=== PATIENT | female | born 1995 | race Caucasian/White ===

== ENCOUNTER 2020-06-17 15:19 | Outpatient (CLI) | payer OTHER, SELFPAY | END 2020-06-17 15:20 | disposition home or self-care (01) | PROVIDERS: PCP Nurse Practitioner Family; Visit Provider Nurse Practitioner Family | DX: Z32.00 Encounter for pregnancy test, result unknown (principal) | CPT/HCPCS: 36415; 84702 ==

== ENCOUNTER 2020-07-21 13:10 | Outpatient (CLI) | payer OTHER, SELFPAY ==
[2020-07-21 13:37] LABS: Basophils Percent Auto 0.3 % (0.2-1.2); Eosinophils Absolute Auto 0.1 K/mm3 (0-0.3); Eosinophils Percent Auto 0.9 % (0-4.4); Hematocrit 38.8 % (37.0-47.0); Hemoglobin 13.6 g/dL (12.0-15.0); Immature Granulocyte Absolute 0.06 K/mm3 (0.00-0.031); Immature Granulocyte Percent A 0.4 % (0-0.5); Lymphocytes Absolute Auto 2.18 K/mm3 (0.9-3.2); Lymphocytes Percent Auto 16.2 % (18.3-44.2); Mean Corpuscular HGB Conc 35.1 g/dl (32-36); Mean Corpuscular Hemoglobin 30.9 pg (26-34); Mean Corpuscular Volume 88.2 fl (80-100); Mean Platelet Volume 9.4 fl (7.4-10.4); Monocytes Absolute Auto 0.7 K/mm3 (0.1-0.6); Neutrophils Absolute Auto 10.4 K/mm3 (1.3-6.7); Neutrophils Percent Auto 77.2 % (45.5-73.1); Platelet Count Result 323 k/mm3 (150-375); White Blood Count 13.5 K/mm3 (4.5-10.0)
[2020-07-21 13:42] LABS: Add Urine Microscopic? YES; Amorphous Sediment Urine Few; Appearance Urine Cloudy (Clear); Bacteria Urine Trace /hpf; Bilirubin Urine Negative (Negative); Blood Urine Negative (Negative); Color Urine Yellow (Yellow); Glucose Urine UA Negative (Negative); Ketones Urine Negative (Negative); Leukocyte Esterase Ur Negative LEU/UL (NEGATIVE); Nitrate Urine Negative (Negative); Protein Urine Negative (Negative); RBC Urine 0-2 /hpf (0-2); Specific Grav Ur 1.018 (1.001-1.035); Squamous Epithelial Cell Urine Few /hpf (Few); Urobilinogen Urine Negative mg/dL (<2.0)
[2020-07-21 14:19] LABS: Thyroid Stimulating Hormone 0.626 uIU/mL (0.465-4.680)
[2020-07-21 14:29] LABS: HIV 1/2 Ab P24 Ag Result Negative (Negative)
[2020-07-21 14:31] LABS: Vitamin D 25 Hydroxy 43.8 ng/mL
[2020-07-21 14:47] LABS: Hepatitis B Surface Antigen Negative (Negative); Rubella IgG Antibody 53.1 IU/ML
[2020-07-21 15:04] LABS: Hepatitis C Virus Antibody Reactive (Negative)
[2020-07-22 11:36] LABS: Rapid Plasma Reagin Non-Reactive (NonReactive)
[2020-07-23 16:02] LABS: Hepatitis C RNA, Quant PCR <15 IU/mL
[2020-07-27 01:29] LABS: Hematocrit 38.8 % (35.0-45.0); Hemoglobin 13.3 g/dL (11.7-15.5); MCH 30.8 pg (27.0-33.0); RDW 13.1 % (11.0-15.0); Red Blood Cell Count 4.31 Mill/uL (3.80-5.10)
== END 2020-07-21 13:11 | disposition home or self-care (01) ==
LOC: ANHLAB 13:12
PROVIDERS: PCP Nurse Practitioner Family; Visit Provider Student in an Organized Health Care Education/Training Program
DX: Z34.90 Encounter for supervision of normal pregnancy, unspecified, unspecified trimester (principal); Z3A.00 Weeks of gestation of pregnancy not specified
CPT/HCPCS: 36415; 81001; 82306; 83021; 84443; 85025; 86592; 86703; 86762; 86787; 86803; 86850; 86900; 86901; 87086; 87340; 87522; G0432

== ENCOUNTER 2020-08-14 10:12 | Outpatient (CLI) | payer OTHER, SELFPAY ==
[2020-08-14 10:50] LABS: Alanine Aminotransferase 15 U/L (4-35); Albumin Level 3.6 g/dL (3.5-5.1); Alkaline Phosphatase 46 U/L (38-126); Anion Gap 5 mmol/L (8-16); Aspartate Amino Transferase 23 U/L (14-36); Bilirubin,Total 0.4 mg/dL (0.2-1.3); Blood Urea Nitrogen 5 mg/dL (7-17); Calcium 8.6 mg/dL (8.4-10.2); Carbon Dioxide 24 mmol/L (22-30); Chloride 109 mmol/L (98-107); Estimated Glomerular Filt Rate > 60; Glucose 92 mg/dL (65-105); Potassium 3.6 mmol/L (3.4-5.0); Sodium 138 mmol/L (137-145)
== END 2020-08-14 10:13 | disposition home or self-care (01) ==
PROVIDERS: PCP Nurse Practitioner Family; Visit Provider Student in an Organized Health Care Education/Training Program
DX: R89.9 Unspecified abnormal finding in specimens from other organs, systems and tissues (principal); Z34.90 Encounter for supervision of normal pregnancy, unspecified, unspecified trimester; Z3A.00 Weeks of gestation of pregnancy not specified
CPT/HCPCS: 36415; 80053

== ENCOUNTER 2020-11-20 12:32 | Outpatient (CLI) | payer OTHER, SELFPAY ==
[2020-11-20 14:16] LABS: Basophils Percent Auto 0.2 % (0.2-1.2); Eosinophils Absolute Auto 0.1 K/mm3 (0-0.3); Eosinophils Percent Auto 0.7 % (0-4.4); Hematocrit 32.9 % (37.0-47.0); Hemoglobin 11.3 g/dL (12.0-15.0); Immature Granulocyte Absolute 0.12 K/mm3 (0.00-0.031); Immature Granulocyte Percent A 0.7 % (0-0.5); Lymphocytes Absolute Auto 1.88 K/mm3 (0.9-3.2); Lymphocytes Percent Auto 11.5 % (18.3-44.2); Mean Corpuscular HGB Conc 34.3 g/dl (32-36); Mean Corpuscular Hemoglobin 31.5 pg (26-34); Mean Corpuscular Volume 91.6 fl (80-100); Mean Platelet Volume 9.4 fl (7.4-10.4); Monocytes Absolute Auto 0.9 K/mm3 (0.1-0.6); Monocytes Percent Auto 5.7 % (2.6-8.5); Neutrophils Absolute Auto 13.3 K/mm3 (1.3-6.7); Neutrophils Percent Auto 81.2 % (45.5-73.1); Platelet Count Result 322 k/mm3 (150-375); Red Blood Count 3.59 M/mm3 (4.2-5.4); Red Cell Distribution Width 12.1 % (11.5-14.5); White Blood Count 16.4 K/mm3 (4.5-10.0)
[2020-11-20 14:40] LABS: Glucose 1 Hour PP 50gm Dose 121 mg/dL
== END 2020-11-20 12:33 | disposition home or self-care (01) ==
LOC: ANHLAB 12:34
PROVIDERS: Visit Provider Student in an Organized Health Care Education/Training Program
DX: Z34.02 Encounter for supervision of normal first pregnancy, second trimester (principal); Z3A.27 27 weeks gestation of pregnancy
CPT/HCPCS: 36415; 82947; 85025

== ENCOUNTER 2020-12-22 13:14 | Outpatient (CLI) | payer OTHER, SELFPAY ==
[2020-12-22 13:34] LABS: Basophils Percent Auto 0.2 % (0.2-1.2); Eosinophils Absolute Auto 0.2 K/mm3 (0-0.3); Hematocrit 34.7 % (37.0-47.0); Hemoglobin 11.8 g/dL (12.0-15.0); Immature Granulocyte Absolute 0.15 K/mm3 (0.00-0.031); Immature Granulocyte Percent A 0.9 % (0-0.5); Lymphocytes Absolute Auto 2.21 K/mm3 (0.9-3.2); Lymphocytes Percent Auto 13.2 % (18.3-44.2); Mean Corpuscular Hemoglobin 31.1 pg (26-34); Mean Corpuscular Volume 91.6 fl (80-100); Monocytes Absolute Auto 1.1 K/mm3 (0.1-0.6); Monocytes Percent Auto 6.7 % (2.6-8.5); Platelet Count Result 314 k/mm3 (150-375); Red Blood Count 3.79 M/mm3 (4.2-5.4); Red Cell Distribution Width 12.3 % (11.5-14.5); White Blood Count 16.7 K/mm3 (4.5-10.0)
[2020-12-22 14:41] LABS: HIV 1/2 Ab P24 Ag Result Negative (Negative)
[2020-12-23 11:10] LABS: Rapid Plasma Reagin Non-Reactive (NonReactive)
== END 2020-12-22 13:15 | disposition home or self-care (01) ==
LOC: ANHLAB 13:18
PROVIDERS: Visit Provider Student in an Organized Health Care Education/Training Program
DX: Z34.90 Encounter for supervision of normal pregnancy, unspecified, unspecified trimester (principal); Z3A.00 Weeks of gestation of pregnancy not specified
CPT/HCPCS: 36415; 85025; 86592; 86703; G0432

== ENCOUNTER 2021-01-15 14:09 | Outpatient (CLI) | payer OTHER, SELFPAY ==
[2021-01-15] VITALS (9 sets, daily range): BP systolic 116–129; BP diastolic 64–71; PULSE 76–84
[2021-01-15 14:43] LABS: Add Urine Microscopic? YES; Appearance Urine Turbid (Clear); Bacteria Urine 2+ /hpf; Bilirubin Urine Negative (Negative); Blood Urine Negative (Negative); Color Urine Amber (Yellow); Glucose Urine UA Negative (Negative); Ketones Urine Negative (Negative); Leukocyte Esterase Ur Negative LEU/UL (NEGATIVE); Mucus Urine Rare /lpf; Nitrate Urine Negative (Negative); Protein Urine Negative (Negative); RBC Urine 0-2 /hpf (0-2); Specific Grav Ur 1.012 (1.001-1.035); Squamous Epithelial Cell Urine Many /hpf (Few); Urobilinogen Urine Negative mg/dL (<2.0); WBC Urine 0-3 /hpf (0-3)
[2021-01-15 14:44] LABS: Basophils Percent Auto 0.2 % (0.2-1.2); Eosinophils Absolute Auto 0.2 K/mm3 (0-0.3); Eosinophils Percent Auto 1.1 % (0-4.4); Hematocrit 33.7 % (37.0-47.0); Hemoglobin 11.7 g/dL (12.0-15.0); Immature Granulocyte Absolute 0.11 K/mm3 (0.00-0.031); Immature Granulocyte Percent A 0.7 % (0-0.5); Lymphocytes Absolute Auto 1.88 K/mm3 (0.9-3.2); Lymphocytes Percent Auto 12.4 % (18.3-44.2); Mean Corpuscular HGB Conc 34.7 g/dl (32-36); Mean Corpuscular Hemoglobin 31.1 pg (26-34); Mean Corpuscular Volume 89.6 fl (80-100); Mean Platelet Volume 9.4 fl (7.4-10.4); Monocytes Percent Auto 6.6 % (2.6-8.5); Neutrophils Absolute Auto 11.9 K/mm3 (1.3-6.7); Platelet Count Result 303 k/mm3 (150-375); Red Blood Count 3.76 M/mm3 (4.2-5.4); Red Cell Distribution Width 12.3 % (11.5-14.5); White Blood Count 15.1 K/mm3 (4.5-10.0)
[2021-01-15 14:54] LABS: Alanine Aminotransferase 15 U/L (4-35); Albumin Level 3.3 g/dL (3.5-5.1); Alkaline Phosphatase 129 U/L (38-126); Anion Gap 7 mmol/L (8-16); Aspartate Amino Transferase 22 U/L (14-36); Bilirubin,Total 0.3 mg/dL (0.2-1.3); Blood Urea Nitrogen 5 mg/dL (7-17); Calcium 9.3 mg/dL (8.4-10.2); Carbon Dioxide 22 mmol/L (22-30); Chloride 107 mmol/L (98-107); Estimated Glomerular Filt Rate > 60; Glucose 99 mg/dL (65-110); Potassium 3.4 mmol/L (3.4-5.0); Sodium 136 mmol/L (137-145); Uric Acid 3.3 mg/dL (2.5-7.5)
[2021-01-15 15:41] LABS: Creatinine Urine 79.4 mg/dL; Total Protein Urine Random 21 mg/dL; Ur Ttl Prot Creatinine Ratio 0.26 mg/mg (0-0.20)
--- NOTE | 2021-01-15 16:08 | PC.NURSE ---
0283--Report to Dr. Ladd re: BP's, lab results, and NST results. Orders to DC home.
== END 2021-01-15 16:10 | disposition home or self-care (01) ==
LOC: ANHOBOP 14:17 → ANHLDR 14:20
PROVIDERS: Visit Provider Student in an Organized Health Care Education/Training Program
DX: O13.3 Gestational [pregnancy-induced] hypertension without significant proteinuria, third trimester (principal); Z3A.36 36 weeks gestation of pregnancy
CPT/HCPCS: 36415; 59025; 80053; 81001; 82570; 84156; 84550; 85025; 87086; 99199

== ENCOUNTER 2021-01-16 20:46 | Outpatient (CLI) | payer OTHER, SELFPAY ==
[2021-01-16 21:07] VITALS: RESP 18; TEMP 36.8
[2021-01-16 21:08] VITALS: BP 128/71; PULSE 72
[2021-01-16 21:15] VITALS: BP 120/71; PULSE 68
[2021-01-16 21:30] VITALS: BP 119/63; PULSE 68
== END 2021-01-16 21:21 | disposition home or self-care (01) ==
LOC: ANHOBOP 20:52 → ANHOBPP 20:54
PROVIDERS: Visit Provider Student in an Organized Health Care Education/Training Program
DX: O13.9 Gestational [pregnancy-induced] hypertension without significant proteinuria, unspecified trimester (principal); Z3A.00 Weeks of gestation of pregnancy not specified
CPT/HCPCS: 59025; 99199

== ENCOUNTER 2021-01-27 13:49 | Inpatient (IN) | payer OTHER, SELFPAY ==
[2021-01-27] VITALS (12 sets, daily range): BP systolic 112–130; BP diastolic 55–82; PULSE 71–97; RESP 16–18; TEMP 36.4–37.2; BMI 28.3
--- NOTE | 2021-01-27 13:49 | LDADM ---
This patient, Ambika Woods, was admitted to Labor/Delivery/Recovery 108 on 01/27/21 at 13:49. Plans for labor, pain management and were discussed with patient. Patient/family oriented to hospital policies and general routines including ID bracelet, bed and alarms, visiting hours, pain management, procedures, bathroom and other care routines, personal items, smoking policy, room service/diet and guest tray routines, infant security routines, and visiting hours. Patient/Family are encouraged to report perceived risks to care and to ask questions if they do not understand what they are told or what they should do. See OBIX for further documentation.
[2021-01-27 14:30] LABS: Basophils Absolute Auto 0.1 K/mm3 (0.0-0.1); Basophils Percent Auto 0.3 % (0.2-1.2); Eosinophils Absolute Auto 0.1 K/mm3 (0-0.3); Eosinophils Percent Auto 0.7 % (0-4.4); Hemoglobin 12.8 g/dL (12.0-15.0); Immature Granulocyte Absolute 0.17 K/mm3 (0.00-0.031); Immature Granulocyte Percent A 0.9 % (0-0.5); Mean Corpuscular HGB Conc 34.6 g/dl (32-36); Mean Corpuscular Hemoglobin 30.7 pg (26-34); Mean Corpuscular Volume 88.7 fl (80-100); Mean Platelet Volume 9.4 fl (7.4-10.4); Monocytes Percent Auto 5.3 % (2.6-8.5); Neutrophils Absolute Auto 14.8 K/mm3 (1.3-6.7); Neutrophils Percent Auto 80.8 % (45.5-73.1); Platelet Count Result 332 k/mm3 (150-375); Red Blood Count 4.17 M/mm3 (4.2-5.4); Red Cell Distribution Width 12.4 % (11.5-14.5); White Blood Count 18.3 K/mm3 (4.5-10.0)
[2021-01-27] MEDS: DINOPROSTONE 10 MG VAG INSERT VAGINAL (14:45)
--- NOTE | 2021-01-27 15:47 | PC.NURSE ---
Lab called, still awaiting CMP results.
[2021-01-27 16:07] LABS: Alanine Aminotransferase 20 U/L (4-35); Albumin Level 3.7 g/dL (3.5-5.1); Alkaline Phosphatase 154 U/L (38-126); Anion Gap 6 mmol/L (8-16); Aspartate Amino Transferase 30 U/L (14-36); Bilirubin,Total 0.4 mg/dL (0.2-1.3); Blood Urea Nitrogen 5 mg/dL (7-17); Calcium 9.4 mg/dL (8.4-10.2); Carbon Dioxide 20 mmol/L (22-30); Chloride 110 mmol/L (98-107); Estimated CRCL calculation 145 ml/min; Estimated Glomerular Filt Rate > 60; Glucose 99 mg/dL (65-110); Potassium 3.7 mmol/L (3.4-5.0); Sodium 136 mmol/L (137-145)
[2021-01-27 16:50] LABS: Amphetamine Screen Urine Negative (Negative); Barbiturate Screen Urine Negative (Negative); Benzodiazepines Screen Urine Negative (Negative); Cannabinoid Screen Urine Negative (Negative); Cocaine Screen Urine Negative (Negative); Methadone Screen Urine Negative (Negative); Opiate Screen Urine Negative (Negative); Phencyclidine Screen Urine Negative (Negative)
--- NOTE | 2021-01-27 16:53 | PM.IMHP ---
H&P: HPI History of Present Illness Date/Time: 01/27/21 16:53 Patient is a 25-year-old last menstrual period 04/30/2020. She is currently 38 weeks 6 days gestation with an estimated due date of 02/04/2021. She is dated by LMP consistent with ultrasound on 07/07/2020 at 9 weeks gestation. Patient presents to Labor and delivery for induction of labor secondary to gestational hypertension. Patient presented to [facility] office today for routine visit and was found to have an elevated blood pressure of 146/80. This is patient's 2nd documented elevated blood pressure during as she had a previous elevated blood pressure of 146/76 approximately 2 weeks ago. Decision was made to proceed with induction of labor secondary to newly diagnosed gestational hypertension. In general, patient reports feeling well. Denies any headache, chest pain, shortness of breath, nausea, vomiting, right upper quadrant tenderness, or visual disturbances. She reports occasional contractions. Denies any vaginal bleeding or leakage of fluid. Reports good movement. Chief Complaint: Induction of labor Gestational hypertension Review of Systems Review of Systems: All systems reviewed & are unremarkable except as noted in HPI and below Constitutional: Constitutional: Reports as per HPI, Reports no additional constitutional complaints, Denies chills, Denies fever(s), Denies headache(s) and Denies night sweats Eyes: Eyes: Reports as per HPI and Reports no additional eye complaints ENT: Reports system reviewed and no additional complaints, except as documented, Reports as per HPI, Reports Normal hearing present and Denies headache(s) Cardiovascular: Cardiovascular: Reports as per HPI, Reports no additional cardiovascular complaints, Denies chest pain and Denies dyspnea Respiratory: Respiratory: Reports as per HPI, Reports no additional respiratory complaints, Denies cough and Denies dyspnea Gastrointestinal: Gastrointestinal: Reports as per HPI, Reports no additional gastrointestinal complaints, Denies abdominal pain, Denies change in bowel habits, Denies change in stool character, Denies nausea and Denies vomiting Genitourinary: Genitourinary: Reports no additional female genitourinary complaints, Reports as per HPI, Denies abnormal vaginal bleeding, Denies genital lesions, Denies hot flashes, Denies dyspareunia, Denies pelvic pain, Denies sexual dysfunction, Denies urinary incontinence, Denies vaginal discharge, Denies vaginal dryness and Denies vaginal odor Musculoskeletal: Musculoskeletal: Reports no additional musculoskeletal complaints and Reports as per HPI Integumentary/Breasts: Skin/Breast: Reports system reviewed and no additional complaints, except as docu, Reports as per HPI, Denies breast pain and Denies nipple discharge Neurologic: Reports system reviewed and no additional complaints, except as documented, Reports as per HPI, Reports Normal hearing present and Denies headache(s) Psychiatric: Psychiatric: Reports no additional psychiatric complaints, Reports as per HPI, Denies anxiety and Denies depression Endocrine: Endocrine: Reports no additional endocrine complaints and Reports as per HPI Hematologic/Lymphatic: Hematologic/Lymphatic: Reports no additional hematologic/lymphatic complaints and Reports as per HPI Allergic/Immunologic: Allergic/Immunologic: Reports no additional allergic/immunologic complaints and Reports as per HPI PMFSH Family History Family History Grandparent Hypertension Cancer Social History Social History Years smoked: 14 Smoking status: Current every day smoker Tobacco type: cigarettes Alcohol intake: never Substance use: former Substance use type: marijuana Last use: STOPPED WITH Gender identity (if verbalized by the patient): Female Spiritual care concerns: No Meds Home Medic
--- NOTE | 2021-01-27 17:01 | WPDANESEPP ---
Anes - Eval Pre Procedure Procedure: Labor epidural Date/Time: 01/27/21 17:01 Surgeon: Wilberto Preop Diagnosis: ABD pain with contractions Pre Op Diagnosis: iol Patient Data Age: 25 Gender: F Height: 1.65 m Weight: 77.2 kg Last Vital Signs Temp 97.9 F 01/27/21 14:24 Pulse 86 01/27/21 16:45 Resp 18 01/27/21 14:24 BP 130/76 01/27/21 16:45 Allergies Allergy/AdvReac Type Severity Reaction Status Date / Time azithromycin Allergy Mild HIVES Verified 01/27/21 13:17 Home Medications Medication Instructions Recorded Confirmed Type vits no.126-ferrous fum 1 tablet PO DAILY #30 tablet 06/17/20 01/27/21 Rx 28 mg iron-folic acid 800 mcg tablet blood pressure monitor #1 ea 01/15/21 01/27/21 Rx Laboratory Tests 01/27/21 01/27/21 01/27/21 14:16 14:17 14:17 WBC 18.3 K/mm3 H K/mm3 (4.5-10.0) RBC 4.17 M/mm3 L M/mm3 (4.2-5.4) Hgb 12.8 g/dL g/dL (12.0-15.0) Hct 37.0 % % (37.0-47.0) MCV 88.7 fl fl (80-100) MCH 30.7 pg pg (26-34) MCHC 34.6 g/dl g/dl (32-36) RDW 12.4 % % (11.5-14.5) Plt Count 332 k/mm3 k/mm3 (150-375) MPV 9.4 fl fl (7.4-10.4) Immature Gran % (Auto) 0.9 % H % (0-0.5) Neut % (Auto) 80.8 % H % (45.5-73.1) Lymph % (Auto) 12.0 % L % (18.3-44.2) [place] % (Auto) 5.3 % % (2.6-8.5) Eos % (Auto) 0.7 % % (0-4.4) Baso % (Auto) 0.3 % % (0.2-1.2) Lymph # (Auto) 2.20 K/mm3 K/mm3 (0.9-3.2) [place] # (Auto) 1.0 K/mm3 H K/mm3 (0.1-0.6) Eos # (Auto) 0.1 K/mm3 K/mm3 (0-0.3) Baso # (Auto) 0.1 K/mm3 K/mm3 (0.0-0.1) Abs Immat Gran (auto) 0.17 K/mm3 H K/mm3 (0.00-0.031) Absolute Neuts (auto) 14.8 K/mm3 H K/mm3 (1.3-6.7) Absolute Nucleated RBC 0.0 K/mm3 K/mm3 (0.0-0.012) Nucleated RBC % 0.0 % % (0.0-0.2) Sodium Potassium Chloride Carbon Dioxide Anion Gap BUN Creatinine Estim Creat Clear Calc Estimated GFR Glucose Uric Acid Pending Calcium Total Bilirubin AST ALT Alkaline Phosphatase Total Protein Albumin Urine Opiates Screen Urine Methadone Screen Ur Barbiturates Screen Ur Phencyclidine Scrn Ur Amphetamine Screen U Benzodiazepines Scrn Urine Cocaine Screen U Cannabinoids Screen RPR Pending Blood Type Antibody Screen 01/27/21 01/27/21 01/27/21 14:17 14:17 15:08 WBC RBC Hgb Hct MCV MCH MCHC RDW Plt Count MPV Immature Gran % (Auto) Neut % (Auto) Lymph % (Auto) [place] % (Auto) Eos % (Auto) Baso % (Auto) Lymph # (Auto) [place] # (Auto) Eos # (Auto) Baso # (Auto) Abs Immat Gran (auto) Absolute Neuts (auto) Absolute Nucleated RBC Nucleated RBC % Sodium 136 mmol/L L mmol/L (137-145) Potassium 3.7 mmol/L mmol/L (3.4-5.0) Chloride 110 mmol/L H mmol/L (98-107) Carbon Dioxide 20 mmol/L L mmol/L (22-30) Anion Gap 6 mmol/L L mmol/L (8-16) BUN 5 mg/dL L mg/dL (7-17) Creatinine 0.50 mg/dL L mg/dL (0.7-1.0) Estim Creat Clear Calc 145 ml/min ml/min Estimated GFR > 60 (59 - ) Glucose 99 mg/dL mg/dL (65-110) Uric Acid Calcium 9.4 mg/dL mg/dL (8.4-10.2) Kevyna
--- NOTE | 2021-01-27 17:02 | WPDHPUPDATE1 ---
History and Physical Update Update Date/Time: 01/27/21 17:02 History and Physical has been reviewed, including an updated exam of the patient. There are NO changes in the patient's condition. Risks, benefits, and alternatives have been discussed and questions answered. Patient agrees to proceed with procedure.
--- NOTE | 2021-01-27 18:22 | PC.NURSE ---
Message left with pharmacy, still waiting for nicotine patch.
[2021-01-27 18:25] LABS: Uric Acid 3.9 mg/dL (2.5-7.5)
[2021-01-28] VITALS (202 sets, daily range): BP systolic 105–152; BP diastolic 49–103; PULSE 56–165; RESP 14–20; TEMP 36.1–37.1; O2SAT 90–100
[2021-01-28] MEDS: LACTATED RINGERS 1,000 ML 125 ML IV CONT ×2 (03:56→10:39)
[2021-01-28] MEDS: OXYTOCIN 30 UNITS/NS 500 ML 30 UNITS/500 ML BAG 6 UNITS IV CONT (03:57)
[2021-01-28] MEDS: NICOTINE (*PBKC) 14 MG PATCH 1 PATCH TRANSDERM (04:00)
[2021-01-28 08:36] LABS: Rapid Plasma Reagin Non-Reactive (NonReactive)
--- NOTE | 2021-01-28 09:03 | PM.OBPNLAB ---
Pain Control Date/time seen: 01/28/21 09:03 Patient appears uncomfortable during contractions. SROM occurred approx. 1 hour ago. SVE /-2. EFM category 1. Cerulean shows contractions q2 mins. Patient may have epidural. Continue pitocin.
[2021-01-28] MEDS: OXYTOCIN 30 UNITS/NS 500 ML 30 UNITS/500 ML BAG 125 UNITS IV CONT (18:22)
--- NOTE | 2021-01-28 18:36 | P.PCNOB_ITS ---
OB - Delivery Note Procedure Delivery date: 01/28/21 Procedure: The patient is a 25-year-old now who presented to labor and delivery on 01/27/2021 at 38 weeks 6 days gestation for induction of labor secondary to newly diagnosed gestational hypertension. Initial cervical exam was closed. Induction of labor was started with Cervidil. Cervidil remained in place for 12 hours. Upon removal, patient's cervical exam was 1 cm dilated. Pitocin was started for labor augmentation. Patient experienced spontaneous rupture of membranes at 6:56 a.m. Clear amniotic fluid was noted. Pitocin was continuously titrated throughout the remainder of the morning and afternoon. Patient became uncomfortable and requested an epidural for pain management which was placed without difficulty. Patient's cervical exam was 2.5 cm dilated at approximately 10:20 a.m. Cervical exam remained unchanged at approximately 1:00 p.m. An IUPC was placed for enhanced monitoring. Early and variable decelerations were noted on monitoring. Patient was noted to be fully dilated at 4:55 p.m. IUPC became dislodged and was removed just before 5:30 p.m. Patient was encouraged to push and found to be pushing well. Audible decelerations were noted, however, relationship to contractions uncertain. Decelerations, however, recovered each time. Patient was prepped and draped for delivery. At 5:57 p.m., patient delivered infant head atraumatically without difficulty in DOMINICK presentation. Occiput restituted to maternal right side, however, infant's neck, shoulders, and rest of body delivered quickly afterwards without any further maternal effort. A nuchal cord x1 and body cord were noted and reduced. appeared floppy. Nose and mouth were suctioned with bulb suction as infant was placed on maternal abdomen where care was assumed by awaiting nursing staff. The cord was clamped and cut. A segment of cord was collected for cord gases. Cord blood was collected. The placenta was delivered spontaneously and intact. Uterine fundus was noted to be firm with massage. On inspection, a 1st degree perineal laceration was noted. This laceration was repaired with 3-0 Vicryl in the usual fashion. Excellent hemostasis was noted. Estimated blood loss for entire delivery was 200 cc. The infant was a live-born female infant, 6 and 9, weighing 6 lbs. Both mother and baby doing well at the end of delivery. events: Induced HTN and Labor Induction Intrapartal events: Deceleration Induction method: per cervidil protocol Delivery augmentation: pitocin Delivery monitor: external FHT, external uterine and internal uterine Route of delivery: Laceration Description: Perineal - 1st Degree Delivery repair: vicryl (3-0) Specimen: Yes (placenta and cord, cord blood and cord gases) Quantitative Blood Loss (ml): 200 Anesthesia type: Epidural Disposition: floor Complications: No immediate complications [place] Baby Date of : 01/28/21 Time of : 17:57 Weeks of gestation at delivery: 39 gender: Female Weight (pounds): 6 Weight (ounces): 0 presentation: vertex position: Right Occiput Anterior Placenta delivery description: Spontaneous cord vessel description: Nuchal Cord (x1), Clamped/Cut and Around Body x1 score one minute: 6 score five minutes: 9
[2021-01-28] MEDS: LORATADINE 10 MG TABLET PO (19:30)
[2021-01-28] MEDS: IBUPROFEN 600 MG TABLET PO (20:13)
[2021-01-28] MEDS: BENZOCAINE 20% AER SPR (*SP) 56 GM CAN 1 SPRAY TOPICAL (20:14)
[2021-01-28] MEDS: WITCH HAZEL 40 PADS 1 PAD TOPICAL (20:14)
[2021-01-29 04:47] VITALS: BP 120/64; PULSE 78; RESP 12; TEMP 37.6; O2SAT 98
[2021-01-29] MEDS: IBUPROFEN 600 MG TABLET PO ×3 (04:49→20:27)
[2021-01-29 05:18] LABS: Hematocrit 34.9 % (37.0-47.0); Hemoglobin 11.8 g/dL (12.0-15.0)
[2021-01-29 07:30] VITALS: PULSE 80; RESP 16; O2SAT 97
[2021-01-29 07:35] VITALS: BP 115/67; PULSE 80; RESP 16; TEMP 36.6; O2SAT 97
[2021-01-29] MEDS: MULTIVIT/MIN/PREN/FOL AC/IRON TABLET 1 TAB PO (09:40)
[2021-01-29] MEDS: DOCUSATE SODIUM 100 MG CAPSULE PO (09:40)
--- NOTE | 2021-01-29 09:55 | P.PNOB_ITS ---
OB - PN: Subj Subjective Date/time seen: 01/29/21 09:55 Patient doing well morning. Reports generalized soreness, however, denies significant pain. Reports adequate relief with pain medication. Minimal lochia. Ambulating without difficulty. OB - PN: Obj Data Labs CBC & Chem 7: 01/29/21 04:55 01/27/21 14:17 Labs: Laboratory Results - last 24 hr 01/29/21 04:55 Hgb 11.8 L Hct 34.9 L OB - PN A/P Assessment and Plan (1) Normal spontaneous vaginal delivery: Code(s): O80 - Encounter for full-term uncomplicated delivery Status: Acute Assessment and Plan: PPD#1 doing well continue routine care anticipate dc home tomorrow Time Spent With Patient Time: Total time spent is greater than 50% in coordination of care (as do cumented) at patient's floor/unit and/or counseling patient: Exam Const: General: cooperative, healthy appearing, comfortable and no acute distress GI: Inspection: non-distended GI Palp: Yes Soft to palpation and No Tenderness to palpation present (GI) Other: fundus firm below umbilicus Extrem: Right lower extremity: no edema Left lower extremity: no edema Other: no calf tenderness
[2021-01-29 11:51] VITALS: BP 102/56; PULSE 78; RESP 16; TEMP 37.4; O2SAT 100
--- NOTE | 2021-01-29 14:30 | PC.NURSE ---
Mother called out for assist with feeding. Mother states she is unsure if she wishes to continue to breastfeed. Mother has had relatives that breastfed and infants had weight loss and jaundice and is concerned with is getting enough. Mother breastfed first feeding and has bottle fed since. Suggested mother put to breast each feeding then supplement until her milk is well established. Infant is able to freely thrust tongue past gum ridge and flange both lips. Reviewed feeding cues, frequencies, duration of feedings, feeding elimination flow sheet, and signs of adequate intake. Demonstrated stimulation techniques to wake infant for feeding. Assisted with infant to breast. Reviewed positioning/alignment in cross cradle, holding breast in ?U? hold and guided asymmetrical latch on. Discussed rational for each. Infant able to latch correctly. Reviewed signs of a correct latch, effective nursing and suck swallow ratio. nursed eagerly, with steady draws and frequent swallowing noted. Reviewed the difference of effective vs ineffective nursing. Suggested mother stimulate while feeding to increase stimulation, increase intake and to assist with maintaining deep latch. was able to maintain latch without discomfort to mother. Demonstrated how to adjust latch more deeply while feeding if needed. Nipple care reviewed of lanolin after feedings, warm compresses as needed.
--- NOTE | 2021-01-29 15:19 | WPDANLDPN2 ---
Anes-Prog Note L&D Date/Time: 01/29/21 15:19 Comfortable throughout: labor and delivery Neuraxial method: epidural Epidural/Spinal procedure site: clean & non-tender Neuro status: Neuro function grossly intact. Cardiovascular status: normal Respiratory status: normal Airway patency: baseline Mental status: baseline Post-Op hydration status: normal Vital Signs: Last Vital Signs Temp 37.4 C 01/29/21 11:51 Pulse 78 01/29/21 11:51 Resp 16 01/29/21 11:51 BP 102/56 L 01/29/21 11:51 Pulse Ox 100 01/29/21 11:51 Pain score (VAS): 10 I/O: Intake & Output 01/28/21 01/29/21 01/29/21 23:59 07:59 15:59 Intake Total 300 700 Output Total 297 850 Balance 3 -150 Post-procedural complaints: none Patient feedback: Patient satisfied with anesthetic care.
[2021-01-29 20:27] VITALS: BP 106/65; PULSE 71; RESP 16; TEMP 36.6; O2SAT 93
[2021-01-29 23:15] VITALS: BP 99/55; PULSE 79; RESP 16; TEMP 36.6; O2SAT 93
[2021-01-30 03:00] VITALS: BP 130/78; PULSE 78; RESP 16; TEMP 36.7; O2SAT 96
[2021-01-30] MEDS: IBUPROFEN 600 MG TABLET PO ×2 (03:03→09:53)
--- NOTE | 2021-01-30 03:04 | PC.NURSE ---
01/30/2021 at 2200 Patient viewed the discharge video Mother & Baby Care, The First Two Weeks . Patient was given the opportunity and encouraged to ask questions. Patient verbalized understanding of information shared and has been given the mother/baby guide for home reference.
[2021-01-30] MEDS: TETANUS,DIPHTHERIA,AC PERTUSSIS ADULT (0.5 ML) BOOSTRIX IM (04:43)
--- NOTE | 2021-01-30 05:20 | P.DS_ITS ---
DS: Admitting Diagnosis Admitting Diagnosis gestational hypertension DS: Discharge Diagnosis Discharge Diagnosis (1) Normal spontaneous vaginal delivery: Code(s): O80 - Encounter for full-term uncomplicated delivery Status: Acute (2) Gestational hypertension: Code(s): O13.9 - Gestational [-induced] hypertension without significant prote inuria, unspecified trimester Status: Acute OB - DS: Summary OB Procedures : PIH Mgmt OB Procedures Intrapartum: Spontaneous Vag Delivery OB Procedures: : None Peripartum Data Infant Delivery Method: Natural Vaginal Laceration Description: Perineal - 1st Degree complications: none Status at Discharge Functional status at discharge: independent ambulation Overall status at discharge: patient is progressing back to baseline Time Spent with Patient Time attestation: Total time spent providing and/or coordinating discharge services: Time spent: Less than 30 minutes DS: Data Data Completed and Pending Pending studies at discharge: Pending at discharge 01/28/21 17:57 Surgical [PTH] Routine Labs on day of discharge: Labs from last 24 hours 01/29/21 04:55 Hgb 11.8 L Hct 34.9 L Discharge Plan Discharge Attending physician on discharge: Asia Ladd Discharging Clinician: Katya Alanis Patient Disposition: Home, Self-Care Activity: may shower and pelvic rest Diet: as tolerated Patient Instructions: Antibiotic Form, How to Stop Smoking (DC), Cigarette Smoking and Your Health (GEN) Stand Alone Forms: General Discharge Information Follow-up/Referrals: Asia Ladd MD [Physician] - 1 Week Discharge Medications: New ibuprofen 600 mg Tablet 600 mg PO Q6H PRN (Reason: Cramping) Qty: 60 RF: 0 Continued (DME) blood pressure monitor Kit See Rx Instructions .Route Qty: 1 RF: 0 Classic 28 mg iron- 800 mcg tablet 1 tablet PO DAILY Qty: 30 RF: 8 Date of admission: 01/27/21 13:49 Primary Care Provider: PHYSICIAN,MACHINE SPR[facility]ER Admitting Provider: Asia Ladd Attending physician on admission: Asia Ladd Condition: Stable
--- NOTE | 2021-01-30 05:23 | P.PNOB_ITS ---
OB - PN: Subj Subjective Date/time seen: 01/30/21 05:23 Patient comments: no complaints, pain well controlled and other (Lochia similar to menses) [place] baby status: doing well OB - PN: Obj Data Labs CBC & Chem 7: 01/29/21 04:55 01/27/21 14:17 Labs: Laboratory Results - last 24 hr 01/29/21 04:55 Hgb 11.8 L Hct 34.9 L OB - PN A/P Plan day: 2 (s/p vaginal delivery, doing well) Plan: routine care, discharge home and other (Follow up in office in 1 week) Time Spent With Patient Time: Total time spent is greater than 50% in coordination of care (as docum ented) at patient's floor/unit and/or counseling patient: Time with patient: less than 15 minutes Exam Const: General: no acute distress GI: Inspection: other (Fundus firm and nontender below umbilicus) GI Palp: Yes Soft to palpation and No Tenderness to palpation present (GI) Extrem: General: no edema
[2021-01-30 07:00] VITALS: BP 119/76; PULSE 72; RESP 14; TEMP 36.8; O2SAT 99
[2021-01-30 08:15] VITALS: PULSE 72; RESP 14; O2SAT 99
[2021-01-30] MEDS: DOCUSATE SODIUM 100 MG CAPSULE PO (09:51)
[2021-01-30] MEDS: MULTIVIT/MIN/PREN/FOL AC/IRON TABLET 1 TAB PO (09:52)
[2021-02-01 08:51] VITALS: BP 141/87; PULSE 75; RESP 20; TEMP 37; O2SAT 100
== END 2021-01-30 14:07 | disposition home or self-care (01) | DRG 807 ==
LOC: ANHLDR 15:32 → ANHOB2 01-30 05:21 → ANHLDR 02-01 11:37 → ANHOB2 02-01 11:37
PROVIDERS: Admitting Provider Student in an Organized Health Care Education/Training Program; Visit Provider Obstetrics & Gynecology
DX: O13.4 Gestational [pregnancy-induced] hypertension without significant proteinuria, complicating childbirth (principal); Z37.0 Single live birth; Z3A.39 39 weeks gestation of pregnancy; O70.0 First degree perineal laceration during delivery; O69.1XX0 Labor and delivery complicated by cord around neck, with compression, not applicable or unspecified; O99.334 Smoking (tobacco) complicating childbirth; F17.210 Nicotine dependence, cigarettes, uncomplicated
CPT/HCPCS: 36415; 80053; 80307; 84550; 85014; 85018; 85025; 86592; 86850; 86900; 86901; 88307; 90715; A9270; J2590; J2795; J7120